=== PATIENT | male | born 1940 | race Caucasian/White ===

== ENCOUNTER 2017-06-25 16:23 | Emergency (ER) | payer MEDICARE, OTHER ==
[~2017-06-25 16:23] MED LIST: ISOVUE-370 76%-LOCM 1 ML ONE
--- NOTE | 2017-06-25 17:01 | RAD ---
CHEST PA AND LATERAL: 06/25/17 HISTORY: 76-year-old male with an injury from a fall. COMPARISON: 03/10/11. FINDINGS: There is a minimally displaced fracture involving the left 7th anterolateral rib. There is some mild linear and parenchymal changes in the lung bases probably related to some subsegmental atelectasis and inspiration is considerably less than on the prior study. No confluent pneumonia. No evidence fo r pneumothorax or significant pleural effusion. IMPRESSION: Minimally displaced left 7th anterolateral rib fracture. Mild bibasilar linear parenchymal changes p robably minimal subsegmental atelectasis. No pneumothorax or pleural effusion. POS: [facility]
[2017-06-25 17:19] LABS: #Eosinphils 0.7 thou/uL (0.0-0.7); #Lymphocytes 1.5 thou/uL (1.20-3.40); #Monocytes 0.8 thou/uL (0.11-0.59); %Basophils 0.4 % (0.0-1.0); %Eosinophils 7.1 % (0.0-10.0); %Lymphocytes 14.7 % (21.0-51.0); Hematocrit 46.6 % (42.0-52.0); Mean Platelet Volume 6.2 fL (7.4-10.4); Red Blood Cell (RBC) Count 4.64 mill/uL (4.70-6.10)
[2017-06-25 17:31] LABS: ALT (SGPT) 32 U/L (8-55); AST (SGOT) 30 U/L (5-34); Alkaline Phosphatase 62 U/L (40-150); Anion Gap 15 mmol/L (10-20); BUN (Urea Nitrogen) 16 mg/dL (8.4-25.7); Bilirubin, Total 0.8 mg/dL (0.2-1.2); Calc. Creatinine Clearance 0 mL/min (70-130); Carbon Dioxide 27 mmol/L (23-31); Chloride 105 mmol/L (98-107); Estimated GFR-MDRD 55; Globulin 2.9 g/dL (2.4-3.5); Protein, Total 7.7 g/dL (5.8-8.1)
[2017-06-25 17:32] LABS: Bilirubin Negative (Negative); Blood, Urine Negative (Negative); Glucose, Urine (Dipstick) Negative (Negative); Ketone, Urine Trace mg/dL (Negative); Nitrite Negative (Negative); Protein, Urine (Dipstick) 30 mg/dL (Neg-Trace)
[2017-06-25 17:33] LABS: Bacteria/HPF None Seen HPF (None Seen); Hyaline Casts/LPF 4-6 HYALINE CAST LPF (0-3 Hyaline); Squamous Epithelial None Seen HPF (0-3); WBC/HPF 0-3 HPF (0-3)
[2017-06-25 17:41] LABS: Sperm/HPF Rare HPF (None Seen)
[2017-06-25] MEDS ORDERED: Morphine 2 MG/ML SYRINGE ONE (18:01)
[2017-06-25] MEDS ORDERED: Ketorolac Tromethamine 30 MG/ML VIAL ONE (18:02)
--- NOTE | 2017-06-25 18:42 | CT ---
CHEST WITH IV CONTRAST ABDOMEN AND PELVIC CT SCAN WITH IV CONTRAST THORACIC SPINE CT SCAN WITH CONTRAST LIMITED LUMBAR SPINE CT SCAN WITH CONTRAST LIMITED 06/25/17 HISTORY: 76-year-old male with fall off a 4-kumar with chest and abdominal pain. CHEST, ABDOMEN, AND PELVIC CT SCAN WITH IV CONTRAST: There is no pneumothorax or pleural effusion. There is a minimally displaced left 7th rib fracture. Three vessel coronary artery calcific disease is noted particularly the LAD. No evidence for acute a ortic injury. No mediastinal hematoma. Status post cholecystectomy. The visualized liver, pancreas, spleen, and adrenal glands are unremarkable. No renal calculus or acute obstruction. Two small ri ght renal cysts. Normal appearing appendix. Sigmoid colon diverticulosis without diverticulitis. Eliu ateral fat containing inguinal hernias. No significant free intraperitoneal fluid or retroperitoneal hematoma. IMPRESSION: No acute posttraumatic process involving the chest, abdomen or pelvis other than the minimally displ aced left 7th rib fracture. Other findings as above. THORACIC SPINE CT SCAN WITH IV CONTRAST LIMITED: IMPRESSION: Thoracic spine spondylosis. No acute fracture. LUMBAR SPINE CT SCAN WITH IV CONTRAST LIMITED: FINDINGS: Multilevel disc osteophytosis and facet arthrosis. Moderate central canal and lateral recess stenosi s at L3-L4 and more severe stenosis at L4-L5 as well as some foraminal stenosis at L5-S1. No evidenc e for acute fracture or dislocation. IMPRESSION: Lumbar spine spondylosis with some variable severity canal and lateral recess and foraminal stenosis at multiple levels. No acute fracture or dislocation. POS: [facility]
== END 2017-06-25 20:30 | disposition home or self-care (01) ==
LOC: ERS 16:23
DX: S22.32XA Fracture of one rib, left side, initial encounter for closed fracture (principal); Z79.82 Long term (current) use of aspirin; Z79.899 Other long term (current) drug therapy; V89.9XXA Person injured in unspecified vehicle accident, initial encounter
CPT/HCPCS: 36415; 71020; 71260; 74177; 80053; 81003; 81015; 85025; 86850; 86900; 86901; 96361; 96374; 96375; J1885; J2270

== ENCOUNTER 2019-03-26 15:13 | Observation (INO) | payer MEDICARE, OTHER ==
--- NOTE | 2019-03-26 15:39 | RAD ---
XR Chest 1 View Portable HISTORY: Weakness and dizziness COMPARISON: 03/27/2011 FINDINGS: The heart size is normal. The lungs are well expanded without focal areas of consolidation, pneumothorax or pleural effusions. IMPRESSION: No radiographic evidence of acute cardiopulmonary process.
[2019-03-26 15:51] LABS: #Basophils 0.1 thou/uL (0.0-0.2); #Eosinphils 0.7 thou/uL (0.0-0.7); #Lymphocytes 1.5 thou/uL (1.20-3.40); #Monocytes 0.7 thou/uL (0.11-0.59); #Neutrophils 3.9 thou/uL (1.40-6.50); %Basophils 0.8 % (0.0-1.0); %Lymphocytes 21.8 % (21.0-51.0); %Monocytes 10.7 % (0.0-10.0); %Neutrophils 56.8 % (42.0-75.0); Hemoglobin 14.4 g/dL (14.0-18.0); Mean Corpuscular Hemoglobin 34.9 pg (27.0-31.0); Mean Corpuscular Volume 99.7 fL (78.0-98.0); Platelet Count 234 thou/uL (130-400); RBC Distribution Width 11.3 % (11.5-14.5); Red Blood Cell (RBC) Count 4.14 mill/uL (4.70-6.10); White Blood Cell (WBC) Count 6.9 thou/uL (4.8-10.8)
[2019-03-26] MEDS ORDERED: Nitroglycerin 2% Ointment 1 INCH/1 GM Packet ONE (16:00)
[2019-03-26 16:12] LABS: ALT (SGPT) 21 U/L (8-55); AST (SGOT) 20 U/L (5-34); Albumin 4.1 g/dL (3.4-4.8); Alkaline Phosphatase 52 U/L (40-150); Anion Gap 12 mmol/L (10-20); BUN (Urea Nitrogen) 14 mg/dL (8.4-25.7); Bilirubin, Total 0.8 mg/dL (0.2-1.2); CK (CPK) 106 U/L (30-200); Calc. Creatinine Clearance 0 mL/min (70-130); Carbon Dioxide 25 mmol/L (23-31); Chloride 107 mmol/L (98-107); Estimated GFR-MDRD 70; Globulin 2.2 g/dL (2.4-3.5); Glucose 105 mg/dL (83-110); Potassium 3.9 mmol/L (3.5-5.1); Protein, Total 6.3 g/dL (5.8-8.1); Sodium 140 mmol/L (136-145)
[2019-03-26 17:45] VITALS: BMI 26.7
[2019-03-26 19:16] LABS: Troponin I Less than 0.010 ng/mL (< 0.028)
[2019-03-26] MEDS ORDERED: HYDROcodone/Acetaminophen 5/325 mg Tablet PO PRN (20:43)
[2019-03-26] MEDS ORDERED: Senokot S 8.6-50 MG TAB PO PRN (20:43)
[2019-03-26] MEDS ORDERED: Acetaminophen 325 MG TAB PO PRN (20:43)
[2019-03-26] MEDS ORDERED: Lisinopril 5 MG TAB PO SCH (21:00)
[2019-03-26] MEDS ORDERED: Terazosin HCl 5 MG CAP PO SCH (21:00)
[2019-03-26] MEDS ORDERED: Atorvastatin Calcium 20 MG TAB PO SCH (21:00)
[2019-03-26] MEDS: Famotidine 20 MG TAB PO SCH (21:34)
[2019-03-26 22:52] LABS: Troponin I Less than 0.010 ng/mL (< 0.028)
--- NOTE | 2019-03-27 02:06 | HP ---
PRIMARY CARE PHYSICIAN: Dr. Jorgensen. MAIL PROCESSING MACHINE OPERATOR: Dr. Mccormack. CHIEF COMPLAINT: Chest pain. HISTORY OF PRESENT ILLNESS: Mr. Cedillo is a 78-year-old man who reported to the emergency room today after having chest pain. He reports that while at [employer], he had some substernal chest pain initially went away, came back and then radiated down his left arm. He denied any shortness of breath, dizziness, lightheadedness, and was walking around when it started. He reports that he also had similar pain yesterday for about an hour, went away and then came back today, and reports that he took some aspirin at home and believes that the nitroglycerin I put on his chest helps with the pain and it is now resolved. The patient does report that Dr. Mccormack put a stent in his LAD in 2009 after he had an IA. In the emergency room, his initial troponin was undetectable. EKG showed normal sinus rhythm, beats per minute 67 with infrequent premature ventricular complexes, conduction normal, axis is normal. Chest x-ray was no acute process. PAST MEDICAL HISTORY: Pertinent for hypertension, hyperlipidemia, enlarged prostate, also has hypothyroidism, history of CAD. SURGICAL HISTORY: Cardiac stent placement and cholecystectomy. SOCIAL HISTORY: Former tobacco user. He quit more than 10 years ago. Denies any alcohol use or drug use. REVIEW OF SYSTEMS: The patient reports chest pain. Denies any shortness of breath or cough. Denies any dyspnea with exertion. Denies any current chest pain. All other systems are reviewed and are negative unless mentioned in the HPI. KNOWN ALLERGIES: None. CURRENT MEDICATIONS: 1. Levothyroxine 100 mcg p.o. daily. 2. Terazosin 1 mg p.o. once a day. 3. Lisinopril 5 mg p.o. once a day. 4. Metoprolol 25 mg once a day. 5. Simvastatin 40 mg p.o. once a day at bedtime. 6. Aspirin 81 mg p.o. once a day. 7. 0.05% as needed. PHYSICAL EXAMINATION: VITAL SIGNS: Blood pressure 130/74, pulse is 66, respirations temp is 98.0, pO2 sats are 98% on room air. CONSTITUTIONAL: The patient appears nontoxic and pain-free. He is alert and oriented to person, place, and time. HEENT: Head is atraumatic and normocephalic. Eyes; eyelids are normal to inspection. Pupils are equally round and reactive to light. ENT; mouth exam is normal. Mucous membranes are moist. NECK: Normal range of motion. No tenderness. Trachea is midline. RESPIRATORY/CHEST: Breath sounds are clear. No findings of any respiratory distress. CARDIOVASCULAR: Heart rate and rhythm, heart sounds are normal. ABDOMEN: Bowel sounds are normal. No distention. No tenderness. BACK: Normal range of motion. No CVA tenderness. EXTREMITIES: Upper extremities; normal range of motion. Motor strength is normal. Sensation intact. Radial pulses are equal bilaterally. Lower extremities; normal range of motion. Inspection is normal. Motor strength is normal. Pedal pulses are equal bilaterally. NEUROLOGIC: The patient is oriented to person, place, and time. Speech is normal. SKIN: Warm, dry, normal in color. PLAN AND ASSESSMENT: 1. Chest pain. The patient does have a history of coronary artery disease with stent in the left anterior descending. We will trend troponins. The patient and his were not sure they wanted to go ahead with a stress test. States that Dr. Mccormack has done both the stress and an echo several years ago, but it has been over a year. They would like to wait until the troponins have trended and have a discussion again whether they should move forward with a stress test or whether Dr. Mccormack should come see them first. They were worried that he might need another heart catheterization. 2. History of hypertension. We will restart home medications. We will trend. 3. History of hypothyroidism. We will order a TSH and free T4 for in the morning. Restart home medications. 4. Hyperlipidemia. We will restart home medications. 5. Deep venous thrombosis and gastrointestinal prophylaxis have been started. 6. Hospital course is dependent on clinical findings. Job ID: [id number]
[2019-03-27 05:04] LABS: #Basophils 0.1 thou/uL (0.0-0.2); #Eosinphils 0.7 thou/uL (0.0-0.7); #Lymphocytes 1.9 thou/uL (1.20-3.40); #Monocytes 0.7 thou/uL (0.11-0.59); #Neutrophils 4.1 thou/uL (1.40-6.50); %Basophils 0.7 % (0.0-1.0); %Eosinophils 8.9 % (0.0-10.0); %Lymphocytes 25.8 % (21.0-51.0); %Monocytes 9.1 % (0.0-10.0); %Neutrophils 55.6 % (42.0-75.0); Hemoglobin 12.7 g/dL (14.0-18.0); Mean Corpuscular HGB CONC 34.5 g/dL (32.0-36.0); Mean Corpuscular Hemoglobin 34.4 pg (27.0-31.0); Mean Corpuscular Volume 99.7 fL (78.0-98.0); Mean Platelet Volume 6.3 fL (7.4-10.4); Platelet Count 211 thou/uL (130-400); RBC Distribution Width 11.2 % (11.5-14.5); Red Blood Cell (RBC) Count 3.69 mill/uL (4.70-6.10); White Blood Cell (WBC) Count 7.4 thou/uL (4.8-10.8)
[2019-03-27 05:23] LABS: Anion Gap 10 mmol/L (10-20); BUN (Urea Nitrogen) 17 mg/dL (8.4-25.7); Calc. Creatinine Clearance 71 mL/min (70-130); Calcium 8.9 mg/dL (7.8-10.44); Carbon Dioxide 24 mmol/L (23-31); Chloride 111 mmol/L (98-107); Estimated GFR-MDRD 67; Glucose 99 mg/dL (83-110); Potassium 3.9 mmol/L (3.5-5.1); Sodium 141 mmol/L (136-145)
[2019-03-27 05:41] LABS: Free T4 (Free Thyroxine) 0.9 ng/dL (0.70-1.48); Thyroid Stimulating Hormone 0.1232 uIU/mL (0.35-4.94)
[2019-03-27] MEDS ORDERED: Levothyroxine Sodium 100 MCG TAB PO SCH (06:00)
[2019-03-27] MEDS ORDERED: Metoprolol Tartrate 25 MG TAB PO SCH (09:00)
[2019-03-27] MEDS ORDERED: Aspirin Chewable 81 MG TAB PO SCH (09:00)
[2019-03-27] MEDS ORDERED: Meloxicam 15 MG TAB PO SCH (09:00)
[2019-03-27] MEDS ORDERED: Enoxaparin Sodium 40 MG/0.4 ML SYRINGE SC SCH (09:00)
[2019-03-27] MEDS: Famotidine 20 MG TAB PO SCH (10:20)
[2019-03-27 15:27] VITALS: BP 165/78; TEMP 98.1
--- NOTE | 2019-03-27 15:31 | NM ---
Nuclear medicine myocardial perfusion evaluation CLINICAL HISTORY: Chest pain, 78-year-old male Radiopharmaceutical: 30.7 mCi technetium 99m sestamibi IV. FINDINGS: Stress imaging of the heart reveals no evidence of focal defect of the left ventricular wal ls. Chamber size is appropriate. Calculated LVEF is 67%, and there is appropriate wall motion and contractility demonstrated with gated imaging. IMPRESSION: 1. Normal myocardial perfusion evaluation: 2. No ischemia or scar identified. 3. Normal left ventricular systolic function. Transcribed Date/Time: 03/27/2019 4:43 PM
[2019-03-27] MEDS ORDERED: ADENOSINE 60 MG/20 ML VIAL ONE (15:55)
--- NOTE | 2019-03-28 01:03 | DIS ---
DATE OF ADMISSION: 03/26/2019 DATE OF DISCHARGE: 03/27/2019 CHIEF COMPLAINT: Chest pain. DISCHARGE DIAGNOSES: 1. Chest pain consistent with angina, acute coronary syndrome ruled out, myocardial perfusion imaging negative for any reversible ischemia, normal ejection fraction, symptoms resolved since hospitalization. 2. Coronary artery disease status post stent of LAD, 2009. 3. Hypertension. 4. Hypothyroidism. BRIEF HOSPITAL COURSE: Mr. Cedillo is a pleasant 78-year-old male with past medical history significant for coronary artery disease followed by Dr. Mccormack, who presented to the hospital with complaints of chest discomfort that had occurred twice over the past week. The patient describes chest pain that he describes as burning, although there was some radiation to the left arm. On the occasion just prior to his admission, the patient describes the chest pain as burning and had just eaten [employer] food prior to arrival. He was admitted for ACS rule out, as well as risk stratification. The patient underwent a nuclear stress test, which showed normal EF and no evidence of reversible ischemia. The results were explained to the patient in detail. All questions answered. The patient has ambulated halls without issue and has had no further chest discomfort. As mentioned, ACS was ruled out with three negative troponins. The patient's lab work is largely unremarkable. DISCHARGE DISPOSITION: Home. DISCHARGE CONDITION: Stable. DISCHARGE INSTRUCTIONS AND FOLLOWUP: The patient will schedule follow up with his primary sheet metal welder, Dr. Mccormack. I have explained that if he were to continue to have chest discomfort, he might indeed need a left heart catheterization. The patient cannot recall the timing of his last stress test or when his last left heart catheterization was, and I have no access to records at this time. We will continue the patient on aspirin, statin, beta-asia, and PAOC inhibitor. I have given the patient as well a prescription for fresh sublingual nitroglycerin to have on hand. He will be compliant with followup. We will continue aggressive risk factor modification. We will discharge the patient in good condition today. Job ID: [id number]
--- NOTE | 2019-04-02 17:16 | EKG ---
Test Reason : Blood Pressure : / mmHG Vent. Rate : 067 BPM Atrial Rate : 067 BPM P-R Int : 178 ms QRS Dur : 090 ms QT Int : 396 ms P-R-T Axes : 055 011 049 degrees QTc Int : 418 ms Sinus rhythm with occasional Premature ventricular complexes Otherwise normal ECG Confirmed by MARILYN BRIONES ([id number]), editorial assistant DESHAUN ALEXANDER ([id number]) on 04/02/2019 5:15:40 PM Referred By: Confirmed By:MARILYN BRIONES
== END 2019-03-27 16:30 | disposition home or self-care (01) ==
LOC: ERS 15:13 → 2SW 16:23
PROVIDERS: ADMIT Internal Medicine; ATTEND Internal Medicine
DX: R07.2 Precordial pain (principal); I10 Essential (primary) hypertension; E03.9 Hypothyroidism, unspecified; E78.5 Hyperlipidemia, unspecified; N40.0 Benign prostatic hyperplasia without lower urinary tract symptoms; I25.10 Atherosclerotic heart disease of native coronary artery without angina pectoris; Z79.82 Long term (current) use of aspirin; Z79.899 Other long term (current) drug therapy; Z95.5 Presence of coronary angioplasty implant and graft; Z87.891 Personal history of nicotine dependence
CPT/HCPCS: 71045; 78452; 80048; 80053; 82550; 84439; 84443; 84484 ×2; 85025 ×2; 93005; 93017; 99285; A9500; G0378 ×3; 36415; J0153

== ENCOUNTER 2020-02-01 10:40 | Emergency (ER) | payer MEDICARE, OTHER ==
[~2020-02-01 10:40] MED LIST changes: -ISOVUE-370 76%-LOCM 1 ML ONE; +Iopamidol-370 76% 500 ML 1 ML ONE
[2020-02-01 11:11] LABS: #Basophils 0.1 thou/uL (0.0-0.2); #Eosinphils 0.4 thou/uL (0.0-0.7); #Lymphocytes 1.4 thou/uL (1.20-3.40); #Monocytes 1.4 thou/uL (0.11-0.59); #Neutrophils 13.1 thou/uL (1.40-6.50); %Basophils 0.4 % (0.0-1.0); %Eosinophils 2.4 % (0.0-10.0); %Lymphocytes 8.6 % (21.0-51.0); %Monocytes 8.5 % (0.0-10.0); %Neutrophils 80.1 % (42.0-75.0); Mean Corpuscular HGB CONC 34.8 g/dL (32.0-36.0); Mean Corpuscular Hemoglobin 34.5 pg (27.0-31.0); Mean Corpuscular Volume 99.3 fL (78.0-98.0); Mean Platelet Volume 6.3 fL (7.4-10.4); Platelet Count 211 thou/uL (130-400); RBC Distribution Width 11.7 % (11.5-14.5); Red Blood Cell (RBC) Count 4.34 mill/uL (4.70-6.10); White Blood Cell (WBC) Count 16.3 thou/uL (4.8-10.8)
[2020-02-01 11:18] LABS: PTT 27.2 sec (22.9-36.1); Prothrombin Time 13.5 sec (12.0-14.7)
[2020-02-01 11:29] LABS: ALT (SGPT) 18 U/L (8-55); AST (SGOT) 14 U/L (5-34); Albumin 3.9 g/dL (3.4-4.8); Alkaline Phosphatase 61 U/L (40-110); Anion Gap 10 mmol/L (10-20); BUN (Urea Nitrogen) 14 mg/dL (8.4-25.7); Bilirubin, Total 1.2 mg/dL (0.2-1.2); Calc. Creatinine Clearance 0 mL/min (70-130); Calcium 8.9 mg/dL (7.8-10.44); Carbon Dioxide 27 mmol/L (23-31); Chloride 107 mmol/L (98-107); Estimated GFR-MDRD 58; Globulin 2.7 g/dL (2.4-3.5); Glucose 113 mg/dL (83-110); Potassium 4.2 mmol/L (3.5-5.1); Protein, Total 6.6 g/dL (5.8-8.1); Sodium 140 mmol/L (136-145)
--- NOTE | 2020-02-01 12:54 | CT ---
CT ABDOMEN AND PELVIS WITH IV CONTRAST: Date: 02/01/2020 HISTORY: Abdominal pain. COMPARISON: 06/25/2017. FINDINGS: The lung bases are clear. The patient is post cholecystectomy. The liver, spleen, pancreas, adrenal g lands, and kidneys are normal. No free air, free fluid, or lymphadenopathy seen in the abdomen or pelvis. There are vascular calcifi cations without evidence of aneurysmal dilatation of the abdominal aorta. Multilevel degenerative collins nges are seen in the spine. The prostate is enlarged. The small bowel loops are not abnormally dilated. A normal appearing appendix is present. There is co lonic diverticulosis. There is thickening of the samuel of the cecum and ascending colon. There is mil d pericolonic inflammatory change on the right. There are small bilateral fat-containing inguinal her asa. IMPRESSION: 1. Probable right colitis. A mass cannot be excluded. Colonoscopy should also be performed. 2. Colonic diverticulosis. 3. Prostatic enlargement. POS: [facility]
== END 2020-02-01 13:46 | disposition home or self-care (01) ==
LOC: ERS 10:40
DX: K92.2 Gastrointestinal hemorrhage, unspecified (principal); K52.9 Noninfective gastroenteritis and colitis, unspecified; I25.2 Old myocardial infarction; I10 Essential (primary) hypertension; E78.00 Pure hypercholesterolemia, unspecified; Z87.891 Personal history of nicotine dependence; Z79.899 Other long term (current) drug therapy; Z79.82 Long term (current) use of aspirin
CPT/HCPCS: 74177; 80053; 85025; 85610; 85730; 86850; 86900; 86901; Q9967

== ENCOUNTER 2022-01-29 05:00 | Outpatient (CLI) | payer MEDICARE | END 2022-01-29 05:01 | disposition home or self-care (01) | LOC: TBSIIMAG 05:00 | PROVIDERS: ATTEND Neurological Surgery | DX: M48.062 Spinal stenosis, lumbar region with neurogenic claudication (principal); M47.816 Spondylosis without myelopathy or radiculopathy, lumbar region | CPT/HCPCS: 72120; 72148 ==

== ENCOUNTER 2022-08-24 10:34 | Outpatient (CLI) | payer MEDICARE ==
[2022-08-24 12:17] LABS: Hemoglobin 14.2 g/dL (13.5-17.5); Mean Corpuscular HGB CONC 34.6 g/dL (32.0-36.0); Mean Corpuscular Hemoglobin 33.6 pg (27.0-33.0); Mean Corpuscular Volume 97.2 fl (81.2-95.1); Mean Platelet Volume 8.8 fl (7.4-10.4); Platelet Count 241 10x3/uL (150-450); RBC Distribution Width 12.1 % (11.5-14.5); Red Blood Cell (RBC) Count 4.22 10x6/uL (4.32-5.72); White Blood Cell (WBC) Count 8.1 10x3/uL (3.5-10.5)
[2022-08-24 12:41] LABS: INR-International Normal Ratio 0.9; PTT 25.4 sec (22.0-33.0); Prothrombin Time 10.3 sec (9.5-12.1)
[2022-08-24 12:43] LABS: Anion Gap 14 mmol/L (10-20); BUN (Urea Nitrogen) 12 mg/dL (8.4-25.7); Calc. Creatinine Clearance 0 mL/min (70-130); Calcium 9.3 mg/dL (7.8-10.44); Carbon Dioxide 27 mmol/L (23-31); Chloride 109 mmol/L (98-107); Estimated GFR 75; Glucose 103 mg/dL (83-110); Potassium 4.5 mmol/L (3.5-5.1); Sodium 145 mmol/L (136-145)
== END 2022-08-24 10:35 | disposition home or self-care (01) ==
LOC: LABBT 10:34
PROVIDERS: ATTEND Neurological Surgery
DX: Z01.812 Encounter for preprocedural laboratory examination (principal); M48.061 Spinal stenosis, lumbar region without neurogenic claudication
CPT/HCPCS: 80048; 85027; 85610; 85730

== ENCOUNTER 2022-08-26 07:18 | Day surgery (SDC) | payer MEDICARE ==
[2022-08-25 10:34] VITALS: BMI 25.7
[2022-08-26] MEDS ORDERED: Thrombin 5000 UNITS/5 ML VIAL ONE (07:59)
[2022-08-26] MEDS ORDERED: Vancomycin 1 GM VIAL ONE (07:59)
[2022-08-26] MEDS ORDERED: Bupivacaine HCl 0.5%/Epinephrine 1:200,000/PF 30 ml Vial ONE (07:59)
[2022-08-26] MEDS ORDERED: Neomycin-Polymyxin 1 ML AMP ONE (07:59)
[2022-08-26] MEDS ORDERED: Fentanyl 100 MCG/2 ML VIAL ONE (09:09)
[2022-08-26] MEDS ORDERED: CEFAZOLIN 2 GM VIAL ONE (09:13)
[2022-08-26] MEDS ORDERED: Sodium Chloride 0.9% 100 ML ONE (09:14)
[2022-08-26] MEDS ORDERED: PROPOFOL 200 MG/20 ML VIAL ONE (09:29)
[2022-08-26] MEDS ORDERED: PHENYLEPHRINE-NS 100 MCG/ML 10 ML SYRINGE ONE (09:29)
[2022-08-26] MEDS ORDERED: Lidocaine 1% PF 5 ML VIAL ONE (09:29)
[2022-08-26] MEDS ORDERED: Dexamethasone 20 MG/5 ML VIAL ONE (09:29)
[2022-08-26] MEDS ORDERED: Ondansetron PF 4 MG/2 ML Vial ONE (09:29)
[2022-08-26] MEDS ORDERED: ePHEDrine 50 MG/ML VIAL ONE (09:29)
[2022-08-26] MEDS ORDERED: Rocuronium Bromide 10 MG/ML (10ML VIAL) ONE (09:29)
[2022-08-26] MEDS ORDERED: Tamsulosin HCl 0.4 MG CAP ONE (12:26)
[2022-08-26] MEDS ORDERED: HYDROcodone/Acetaminophen 5/325 mg Tablet ONE (13:23)
== END 2022-08-26 17:00 ==
LOC: SDC 07:18
PROVIDERS: ATTEND Neurological Surgery
PROC: 01NB0ZZ Release Lumbar Nerve, Open Approach (ICD-10-PCS; principal; 2022-08-26)
DX: M48.062 Spinal stenosis, lumbar region with neurogenic claudication (principal); M71.38 Other bursal cyst, other site; E78.00 Pure hypercholesterolemia, unspecified; I11.9 Hypertensive heart disease without heart failure; E07.9 Disorder of thyroid, unspecified; I25.2 Old myocardial infarction; Z87.891 Personal history of nicotine dependence; Z79.02 Long term (current) use of antithrombotics/antiplatelets; Z79.82 Long term (current) use of aspirin; Z79.890 Hormone replacement therapy; Z79.899 Other long term (current) drug therapy; Z91.040 Latex allergy status; Z95.5 Presence of coronary angioplasty implant and graft
CPT/HCPCS: J1100; J2405; J2704; J3010; J3370; J3490

== ENCOUNTER 2022-10-08 10:03 | Observation (INO) | payer MEDICARE ==
[2022-10-08 10:26] LABS: #Eosinphils 1.5 thou/uL (0.0-0.7); #Lymphocytes 1.5 thou/uL (1.20-3.40); #Monocytes 0.8 thou/uL (0.11-0.59); #Neutrophils 8.5 thou/uL (1.40-6.50); %Basophils 0.1 % (0.0-1.0); %Eosinophils 12.1 % (0.0-10.0); %Lymphocytes 11.9 % (21.0-51.0); %Monocytes 6.7 % (0.0-10.0); %Neutrophils 69.2 % (42.0-75.0); Hemoglobin 13.4 g/dL (14.0-18.0); Mean Corpuscular HGB CONC 33.7 g/dL (32.0-36.0); Mean Corpuscular Hemoglobin 34.1 pg (27.0-31.0); Mean Platelet Volume 6.2 fL (7.4-10.4); Platelet Count 280 10x3/uL (130-400); RBC Distribution Width 12.5 % (11.5-14.5); Red Blood Cell (RBC) Count 3.94 mill/uL (4.70-6.10); White Blood Cell (WBC) Count 12.2 10x3/uL (4.8-10.8)
[2022-10-08 10:46] LABS: ALT (SGPT) 34 U/L (8-55); AST (SGOT) 67 U/L (5-34); Albumin 3.7 g/dL (3.4-4.8); Alkaline Phosphatase 112 U/L (40-110); Anion Gap 11 mmol/L (10-20); BUN (Urea Nitrogen) 11 mg/dL (8.4-25.7); Calc. Creatinine Clearance 0 mL/min (70-130); Calcium 9.4 mg/dL (7.8-10.44); Carbon Dioxide 27 mmol/L (23-31); Chloride 106 mmol/L (98-107); Estimated GFR 70; Globulin 2.6 g/dL (2.4-3.5); Glucose 161 mg/dL (83-110); Lipase 224 U/L (8-78); Potassium 4.1 mmol/L (3.5-5.1); Protein, Total 6.3 g/dL (5.8-8.1); Sodium 140 mmol/L (136-145)
[2022-10-08] MEDS ORDERED: Aspirin Chewable 81 MG TAB ONE (11:15)
[2022-10-08] MEDS ORDERED: Acetaminophen 325 MG TAB PO PRN (13:50)
[2022-10-08] MEDS ORDERED: Senokot S 8.6-50 MG TAB PO PRN (13:50)
[2022-10-08] MEDS ORDERED: Ondansetron PF 4 MG/2 ML Vial IVP PRN (13:50)
[2022-10-08] MEDS ORDERED: Calcium Carbonate 500 MG ChewTAB PO PRN (13:50)
[2022-10-08] MEDS ORDERED: hydrALAZINE 20 MG/ML VIAL SLOW IVP PRN (13:53)
[2022-10-08] MEDS ORDERED: Sodium Chloride 0.9% 1,000 ML IV SCH (14:00)
[2022-10-08 17:05] LABS: Troponin I Less than 0.010 ng/mL (< 0.028)
[2022-10-08 17:43] VITALS: BMI 25.9
[2022-10-08] MEDS ORDERED: FLU VACC QS2022-23(65YR UP)/PF 240 MCG/0.7 ML SYRINGE IM ONE (17:45)
[2022-10-08] MEDS ORDERED: Morphine 2 MG/ML VIAL SLOW IVP PRN (17:55)
[2022-10-08] MEDS: Sodium Chloride 0.9% 1,000 ML IV SCH (18:23)
[2022-10-08] MEDS: Famotidine/PF 20 mg/2ml Vial SLOW IVP SCH (20:25)
[2022-10-08] MEDS ORDERED: Terazosin HCl 5 MG CAP PO SCH (21:00)
[2022-10-08] MEDS ORDERED: Lisinopril 5 MG TAB PO SCH (21:00)
[2022-10-09] MEDS: Sodium Chloride 0.9% 1,000 ML IV SCH ×2 (02:05→08:30)
[2022-10-09 04:58] LABS: #Eosinphils 1.5 thou/uL (0.0-0.7); #Lymphocytes 1.2 thou/uL (1.20-3.40); #Neutrophils 6.2 thou/uL (1.40-6.50); %Eosinophils 15.2 % (0.0-10.0); %Lymphocytes 12.1 % (21.0-51.0); %Monocytes 9.9 % (0.0-10.0); %Neutrophils 62.8 % (42.0-75.0); Mean Corpuscular HGB CONC 35.4 g/dL (32.0-36.0); Mean Corpuscular Hemoglobin 35.6 pg (27.0-31.0); Mean Platelet Volume 6.3 fL (7.4-10.4); Platelet Count 197 10x3/uL (130-400); RBC Distribution Width 12.3 % (11.5-14.5); Red Blood Cell (RBC) Count 3.37 mill/uL (4.70-6.10); White Blood Cell (WBC) Count 9.9 10x3/uL (4.8-10.8)
[2022-10-09 05:18] LABS: Hemoglobin A1c 5.1 % (4.0-6.0)
[2022-10-09 05:24] LABS: ALT (SGPT) 45 U/L (8-55); AST (SGOT) 51 U/L (5-34); Albumin 3.1 g/dL (3.4-4.8); Alkaline Phosphatase 124 U/L (40-110); Anion Gap 12 mmol/L (10-20); BUN (Urea Nitrogen) 11 mg/dL (8.4-25.7); Bilirubin, Total 1.2 mg/dL (0.2-1.2); Calc. Creatinine Clearance 81 mL/min (70-130); Calcium 8.6 mg/dL (7.8-10.44); Carbon Dioxide 23 mmol/L (23-31); Cardiac Risk 3.4 (Less than 4.5); Chloride 108 mmol/L (98-107); Cholesterol 101 mg/dl (< 200 Desired); Estimated GFR 87; Globulin 2.3 g/dL (2.4-3.5); Glucose 96 mg/dL (83-110); HDL Cholesterol 30 mg/dL (>60 Neg Risk); LDL Cholesterol, Calculated 59 mg/dL; Lipase 44 U/L (8-78); Potassium 3.7 mmol/L (3.5-5.1); Protein, Total 5.4 g/dL (5.8-8.1); Sodium 139 mmol/L (136-145); Triglycerides 59 mg/dL (Less than 150)
[2022-10-09] MEDS ORDERED: Levothyroxine Sodium 100 MCG TAB PO SCH (06:00)
[2022-10-09] MEDS: Famotidine/PF 20 mg/2ml Vial SLOW IVP SCH (08:31)
[2022-10-09] MEDS ORDERED: Clopidogrel Bisulfate 75 MG TAB PO SCH (09:00)
[2022-10-09] MEDS ORDERED: Aspirin Chewable 81 MG TAB PO SCH (09:00)
[2022-10-09 12:15] VITALS: BP 108/58; TEMP 98.8
[2022-10-09] MEDS ORDERED: Atorvastatin Calcium 40 MG TAB PO SCH (21:00)
== END 2022-10-09 15:12 | disposition home or self-care (01) ==
LOC: SUATTDRO 10:03 → ERS 10:03 → 2SW 13:53
PROVIDERS: ADMIT Internal Medicine; ATTEND Internal Medicine
DX: K85.90 Acute pancreatitis without necrosis or infection, unspecified (principal); I25.10 Atherosclerotic heart disease of native coronary artery without angina pectoris; I10 Essential (primary) hypertension; E78.00 Pure hypercholesterolemia, unspecified; E03.9 Hypothyroidism, unspecified; Z87.891 Personal history of nicotine dependence; Z79.02 Long term (current) use of antithrombotics/antiplatelets; Z79.82 Long term (current) use of aspirin; Z79.890 Hormone replacement therapy; Z79.899 Other long term (current) drug therapy; Z91.040 Latex allergy status; Z95.5 Presence of coronary angioplasty implant and graft; Z20.822 Contact with and (suspected) exposure to COVID-19
CPT/HCPCS: 71045; 71275; 74174; 76705; 80053 ×2; 80061; 80307; 83036; 83690 ×2; 84484 ×2; 85025 ×2; 93005; U0003; U0005; 36415; 96372; 96374; 96376; G0378; J1650; J7050; S0028

== ENCOUNTER 2023-03-21 09:43 | Outpatient (CLI) | payer MEDICARE ==
[~2023-03-21 09:43] MED LIST changes: -Iopamidol-370 76% 500 ML 1 ML ONE; +Magnevist 469MG/ML 20 ML VIAL ONE
== END 2023-03-21 09:44 | disposition home or self-care (01) ==
LOC: BICMRI 09:43
PROVIDERS: ATTEND Neurological Surgery
DX: M48.062 Spinal stenosis, lumbar region with neurogenic claudication (principal); M47.816 Spondylosis without myelopathy or radiculopathy, lumbar region; T81.89XA Other complications of procedures, not elsewhere classified, initial encounter; Z98.890 Other specified postprocedural states
CPT/HCPCS: 72120; 72158; A9579

== ENCOUNTER 2023-04-19 08:15 | Outpatient (CLI) | payer MEDICARE | END 2023-04-19 08:16 | disposition home or self-care (01) | LOC: BICMRI 08:15 | PROVIDERS: ATTEND Neurological Surgery | DX: M54.6 Pain in thoracic spine (principal) | CPT/HCPCS: 72146; J1030; J2001; S0020 ==

== ENCOUNTER 2023-05-03 14:07 | Outpatient (CLI) | payer MEDICARE | END 2023-05-03 14:08 | disposition home or self-care (01) | LOC: SCSMRI 14:07 | PROVIDERS: ATTEND Neurological Surgery | DX: R26.89 Other abnormalities of gait and mobility (principal); M47.812 Spondylosis without myelopathy or radiculopathy, cervical region | CPT/HCPCS: 72141 ==

== ENCOUNTER 2023-06-13 10:48 | Inpatient (IN) | payer MEDICARE ==
[~2023-06-13 10:48] MED LIST changes: +Iopamidol-370 76% 500 ML MDV (1 ML CHARGE) ONE; -Magnevist 469MG/ML 20 ML VIAL ONE
[2023-06-13 11:14] LABS: #Basophils 0.1 thou/uL (0.0-0.2); #Eosinphils 0.6 thou/uL (0.0-0.7); #Monocytes 0.5 thou/uL (0.11-0.59); #Neutrophils 7.1 thou/uL (1.40-6.50); %Basophils 0.6 % (0.0-1.0); %Eosinophils 5.8 % (0.0-10.0); %Lymphocytes 13.8 % (21.0-51.0); %Monocytes 5.3 % (0.0-10.0); Hematocrit 33.5 % (42.0-52.0); Hemoglobin 11.6 g/dL (14.0-18.0); Mean Corpuscular HGB CONC 34.6 g/dL (32.0-36.0); Mean Corpuscular Hemoglobin 34.8 pg (27.0-31.0); Mean Corpuscular Volume 100.6 fl (78.0-98.0); Mean Platelet Volume 8.7 fL (7.4-10.4); Platelet Count 236 10x3/uL (130-400); RBC Distribution Width 12.9 % (11.5-14.5); Red Blood Cell (RBC) Count 3.33 mill/uL (4.70-6.10); White Blood Cell (WBC) Count 9.5 10x3/uL (4.8-10.8)
[2023-06-13 11:28] LABS: INR-International Normal Ratio 1.1; PTT 26.1 sec (22.9-36.1); Prothrombin Time 14.7 sec (12.0-14.7)
[2023-06-13 11:37] LABS: ALT (SGPT) 17 U/L (8-55); AST (SGOT) 16 U/L (5-34); Albumin 4.1 g/dL (3.4-4.8); Alkaline Phosphatase 95 U/L (40-110); Anion Gap 13 mmol/L (10-20); BUN (Urea Nitrogen) 25 mg/dL (8.4-25.7); Bilirubin, Total 0.7 mg/dL (0.2-1.2); Calc. Creatinine Clearance 0 mL/min (70-130); Calcium 9.3 mg/dL (7.8-10.44); Carbon Dioxide 24 mmol/L (23-31); Chloride 108 mmol/L (98-107); Estimated GFR 60; Globulin 2.1 g/dL (2.4-3.5); Glucose 149 mg/dL (83-110); Potassium 4.4 mmol/L (3.5-5.1); Protein, Total 6.2 g/dL (5.8-8.1); Sodium 141 mmol/L (136-145)
[2023-06-13] MEDS ORDERED: Ondansetron PF 4 MG/2 ML Vial IVP PRN (17:06)
[2023-06-13] MEDS ORDERED: Ondansetron ODT 4 MG TAB PO PRN (17:06)
[2023-06-13] MEDS ORDERED: Acetaminophen 650 MG Suppository PR PRN (17:06)
[2023-06-13] MEDS ORDERED: GoLYTELY 4,000 ml Bottle PO SCH (18:30)
[2023-06-13 18:43] LABS: Hematocrit 32.8 % (42.0-52.0); Hemoglobin 10.9 g/dL (14.0-18.0)
[2023-06-13 21:25] VITALS: BMI 24.9
[2023-06-14 00:37] LABS: Hematocrit 34.7 % (42.0-52.0); Hemoglobin 11.9 g/dL (14.0-18.0)
[2023-06-14 05:11] LABS: #Eosinphils 0.4 thou/uL (0.0-0.7); #Monocytes 0.9 thou/uL (0.11-0.59); %Basophils 0.4 % (0.0-1.0); %Eosinophils 4.2 % (0.0-10.0); %Monocytes 9.7 % (0.0-10.0); %Neutrophils 67.1 % (42.0-75.0); Hematocrit 28.4 % (42.0-52.0); Hemoglobin 9.9 g/dL (14.0-18.0); Mean Corpuscular HGB CONC 34.9 g/dL (32.0-36.0); Mean Corpuscular Hemoglobin 35.6 pg (27.0-31.0); Mean Corpuscular Volume 102.2 fl (78.0-98.0); Mean Platelet Volume 8.9 fL (7.4-10.4); Platelet Count 201 10x3/uL (130-400); Red Blood Cell (RBC) Count 2.78 mill/uL (4.70-6.10)
[2023-06-14] MEDS: Levothyroxine Sodium 100 MCG TAB PO SCH (05:25)
[2023-06-14 05:33] LABS: Anion Gap 12 mmol/L (10-20); BUN (Urea Nitrogen) 19 mg/dL (8.4-25.7); Calc. Creatinine Clearance 63 mL/min (70-130); Calcium 8.9 mg/dL (7.8-10.44); Carbon Dioxide 28 mmol/L (23-31); Chloride 107 mmol/L (98-107); Estimated GFR 70; Glucose 116 mg/dL (83-110); Sodium 143 mmol/L (136-145)
[2023-06-14] MEDS: Acetaminophen 325 MG TAB PO PRN (09:44)
[2023-06-14] MEDS ORDERED: Acetaminophen/Codeine 30-300mg Tablet PO PRN (10:35)
[2023-06-14] MEDS ORDERED: Propranolol HCl LA 60 MG CAP PO SCH (10:45)
[2023-06-14] MEDS ORDERED: Terazosin HCl 5 MG CAP PO SCH (21:00)
[2023-06-14] MEDS ORDERED: Lisinopril 5 MG TAB PO SCH (21:00)
[2023-06-15] MEDS: Acetaminophen 325 MG TAB PO PRN (00:44)
[2023-06-15 04:55] LABS: Hemoglobin 8.6 g/dL (14.0-18.0)
[2023-06-15] MEDS: Levothyroxine Sodium 100 MCG TAB PO SCH (05:40)
[2023-06-15] MEDS ORDERED: Polyethylene Glycol 3350 17 GM Packet PO SCH (09:00)
[2023-06-15] MEDS ORDERED: Propranolol HCl LA 60 MG CAP PO SCH (09:00)
[2023-06-15] MEDS ORDERED: Metamucil PACK PO SCH (09:00)
[2023-06-15] MEDS ORDERED: CHLORPHENIRAMINE MALEATE 4 MG PO SCH (09:00)
[2023-06-15] MEDS ORDERED: Atorvastatin Calcium 40 MG TAB PO SCH (09:00)
[2023-06-15 13:06] LABS: Hematocrit 30.1 % (42.0-52.0); Hemoglobin 10.3 g/dL (14.0-18.0)
[2023-06-15 15:00] VITALS: BP 126/73; TEMP 98.1
[2023-06-16] MEDS ORDERED: FLU VACC QS2023(65UP)/MF59C/PF 60 MCG/0.5 ML SYRINGE IM ONE (09:00)
[2023-06-16] MEDS ORDERED: Clopidogrel Bisulfate 75 MG TAB PO SCH (09:00)
== END 2023-06-15 15:11 | disposition home or self-care (01) | DRG 394 ==
LOC: ERS 10:48 → ERHOLD 15:50 → OBSVTOIN 15:50 → T4-B 20:00
PROVIDERS: ADMIT Internal Medicine; ATTEND Internal Medicine
PROC: 0DJ08ZZ Inspection of Upper Intestinal Tract, Via Natural or Artificial Opening Endoscopic (ICD-10-PCS; principal; 2023-06-14)
PROC: 0DJD8ZZ Inspection of Lower Intestinal Tract, Via Natural or Artificial Opening Endoscopic (ICD-10-PCS; 2023-06-14)
DX: K64.8 Other hemorrhoids (principal); D62 Acute posthemorrhagic anemia; K57.30 Diverticulosis of large intestine without perforation or abscess without bleeding; I10 Essential (primary) hypertension; E03.9 Hypothyroidism, unspecified; N40.0 Benign prostatic hyperplasia without lower urinary tract symptoms; G89.29 Other chronic pain; I25.10 Atherosclerotic heart disease of native coronary artery without angina pectoris; E78.00 Pure hypercholesterolemia, unspecified; K59.00 Constipation, unspecified; K22.2 Esophageal obstruction; Z98.890 Other specified postprocedural states; Z95.818 Presence of other cardiac implants and grafts
CPT/HCPCS: 36415; 74177; 80048; 80053; 85014; 85018; 85025; 85610; 85730; 86850; 86900; 86901; 96374; G0378; J2405; Q9967

== ENCOUNTER 2024-08-24 10:31 | Outpatient (CLI) | payer MEDICARE | END 2024-08-24 10:32 | disposition home or self-care (01) | LOC: BICMRI 10:31 | PROVIDERS: ATTEND Psychiatry & Neurology Neurology | DX: G20.A1 Parkinson's disease without dyskinesia, without mention of fluctuations (principal); I67.89 Other cerebrovascular disease; G31.89 Other specified degenerative diseases of nervous system | CPT/HCPCS: 70551; 74018 ==